=== PATIENT | female | born 1985 | race Caucasian/White ===

== ENCOUNTER 2018-10-12 21:16 | Emergency (ER) | payer SELFPAY ==
[2018-10-12] MEDS: NEOMYC/POLYMYX/BACIT 30 GM OINT TOP (22:57)
[2018-10-12] MEDS: IBUPROFEN 800 MG TAB PO (22:57)
== END 2018-10-12 22:58 | disposition home or self-care (01) ==
LOC: E/R 21:16
DX: T22.192A Burn of first degree of multiple sites of left shoulder and upper limb, except wrist and hand, initial encounter (principal); X13.1XXA Other contact with steam and other hot vapors, initial encounter; Y92.89 Other specified places as the place of occurrence of the external cause
CPT/HCPCS: 16000; 99282-25